=== PATIENT | female | born 2000 | race African-American/Black ===

== ENCOUNTER 2018-12-22 12:29 | Emergency (ER) | payer BC ==
[~2018-12-22] VITALS: Ht 162.6 cm; Wt 56.7 kg
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
[2018-12-22] MEDS ORDERED: ONDANSETRON 4 MG/2 ML VIAL ONE ×2 (12:57→13:53)
[2018-12-22] MEDS ORDERED: LORAZEPAM 2 MG/1 ML VIAL ONE (12:57)
[2018-12-22 12:58] LABS: BASOPHILS # (AUTO) 0.1 K/uL (0.0-8.0); BASOPHILS % (AUTO) 0.6 % (0.0-2.0); EOSINOPHILS # (AUTO) 0.3 K/uL (0.0-0.7); EOSINOPHILS % (AUTO) 2.3 % (0.0-7.0); HEMATOCRIT 43.2 % (31.2-41.9); HEMOGLOBIN 14.1 g/dL (10.9-14.3); LYMPHOCYTES # (AUTO) 1.8 K/uL (20.0-40.0); LYMPHOCYTES % (AUTO) 15.5 % (20.5-74.5); MEAN CORPUSCULAR HEMOGLOBIN 28.3 uug (24.7-32.8); MEAN CORPUSCULAR HGB CONC 33 g/dL (32.3-35.6); MEAN CORPUSCULAR VOLUME 86.6 fL (75.5-95.3); MONOCYTES # (AUTO) 0.8 K/uL (2.0-10.0); MONOCYTES % (AUTO) 6.6 % (0-11); NEUTROPHILS # (AUTO) 8.9 K/uL (1.8-8.9); PLATELET COUNT (AUTO) 386 K/uL (179-408); RED BLOOD CELL COUNT(AUTO) 4.99 MIL/uL (3.63-4.92); WHITE BLOOD COUNT (AUTO) 11.9 K/uL (3.8-11.8)
[2018-12-22] MEDS ORDERED: IV NORMAL SALINE 1000 ML BAG IV ONE (13:00)
[2018-12-22] MEDS ORDERED: ONDANSETRON 4 MG/2 ML VIAL IV ONE ×2 (13:00→13:45)
[2018-12-22] MEDS ORDERED: LORAZEPAM 2 MG/1 ML VIAL IV ONE (13:00)
[2018-12-22 13:07] LABS: CREATININE 0.8 mg/dL (0.6-1.3); POTASSIUM 4.2 mmol/L (3.5-5.1)
[2018-12-22 13:12] LABS: BILIRUBIN,DIRECT 0.1 mg/dL (0.0-0.2); BILIRUBIN,TOTAL 0.4 mg/dL (0.2-1.0); TOTAL PROTEIN, SERUM 7.6 g/dL (6.4-8.2)
[2018-12-22] MEDS ORDERED: METHOCARBAMOL 500 MG TABLET ONE (13:38)
[2018-12-22] MEDS ORDERED: METHOCARBAMOL 500 MG TABLET PO ONE (13:45)
[2018-12-22] MEDS ORDERED: PANTOPRAZOLE SODIUM 40 MG VIAL IV ONE (13:45)
[2018-12-22] MEDS ORDERED: HYDROMORPHONE 1 MG/1 ML DISP.SYRIN IV ONE (13:45)
[2018-12-22] MEDS ORDERED: PANTOPRAZOLE SODIUM 40 MG VIAL ONE (13:47)
[2018-12-22] MEDS ORDERED: HYDROMORPHONE 1 MG/1 ML DISP.SYRIN ONE (13:52)
[2018-12-22 14:19] LABS: *BILIRUBIN,URIN NEGATIVE (NEGATIVE); *BLOOD, URINE NEGATIVE (NEGATIVE); *CLARITY,URINE CLEAR (CLEAR); *COLOR,URINE YELLOW (YELLOW); *KETONES,URINE NEGATIVE (NEGATIVE); *UROBILINOGEN,URINE 0.2 E.U./dl (NORMAL); LEUKOCYTE ESTERASE ,URINE NEGATIVE (NEGATIVE); NITRITE, URINE NEGATIVE (NEGATIVE); PH,URINE 6.5 (5.0-8.0); UGLUCOSE NEGATIVE (NEGATIVE)
[2018-12-22 14:21] LABS: *URINE HCG, QUAL NEGATIVE (NEGATIVE)
--- NOTE | 2018-12-22 14:57 | NUR ---
Patient discharged to home in stable conditon. Written and verbal after care instructions given. Patient and Katja caregiver verbalizes understanding of instructions.
[2018-12-22 14:58] VITALS: BP 134/83
== END 2018-12-22 14:59 | disposition home or self-care (01) ==
LOC: ER 12:29
DX: F15.93 Other stimulant use, unspecified with withdrawal (principal); M62.838 Other muscle spasm; R11.2 Nausea with vomiting, unspecified
CPT/HCPCS: 36415; 80048; 80076; 81001; 83690; 84703; 85025; 96361; 96374; 96375; 96376; 99283; C9113; J1170; J2060; J2405 ×2; A4663; J7030

== ENCOUNTER 2018-12-27 13:28 | Emergency (ER) | payer BC ==
[~2018-12-27] VITALS: Ht 162.6 cm; Wt 52.2 kg
[2018-12-27] MEDS ORDERED: METOCLOPRAMIDE HCL 10 MG/2 ML VIAL IV ONE (14:30)
[2018-12-27] MEDS ORDERED: IV NORMAL SALINE 1000 ML BAG IV ONE (14:30)
[2018-12-27] MEDS ORDERED: diphenhydrAMINE 50 MG/1 ML VIAL IV ONE (14:30)
[2018-12-27] MEDS ORDERED: KETOROLAC TROMETHAMINE 15 MG INJ IVP ONE (14:30)
[2018-12-27] MEDS ORDERED: diphenhydrAMINE 50 MG/1 ML VIAL ONE (15:06)
[2018-12-27] MEDS ORDERED: METOCLOPRAMIDE HCL 10 MG/2 ML VIAL ONE (15:06)
[2018-12-27] MEDS ORDERED: KETOROLAC TROMETHAMINE 15 MG INJ ONE (15:06)
--- NOTE | 2018-12-27 15:12 | NUR ---
Patient is asking IV ativan for her benzodiazepine withdrawal & addiction, MD notified.
--- NOTE | 2018-12-27 15:18 | NUR ---
Occasional retching seen, no actual vomiting seen. Comfort & safety measures maintained (lights dimmed, extra warm blankets on, listening ear provided).
--- NOTE | 2018-12-27 15:49 | NUR ---
Patient is resting comfortably in bed with eyes closed. PATIENT IS PAIN FREE AT THIS TIME.
--- NOTE | 2018-12-27 16:33 | NUR ---
Patient ambulated to bathroom with steady gait, denies nausea@this time. "Can I have a cup of water?" per patient. notified.
--- NOTE | 2018-12-27 16:53 | NUR ---
IV removed. Catheter intact and site benign. Pressure and 4x4 gauze applied to site. No bleeding noted. Patient discharged to home in stable conditon with steady gait. Written and verbal after care instructions given to patient & her addiction counselor. Patient & addiction counselor verbalized understanding & compliance of instructions.
== END 2018-12-27 17:01 | disposition home or self-care (01) ==
LOC: ER 13:30
DX: F15.93 Other stimulant use, unspecified with withdrawal (principal)
CPT/HCPCS: 96374; 96375; 99283; J1200; J1885; J2765; A4663; J7030

== ENCOUNTER 2020-01-15 01:27 | Emergency (ER) | payer BC ==
[~2020-01-15] VITALS: Ht 162.6 cm; Wt 59.0 kg
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
[2020-01-15] MEDS ORDERED: [UNRECOGNIZED DRUG - REMARK] (01:43)
[2020-01-15] MEDS ORDERED: [UNRECOGNIZED DRUG - REMARK] (01:43)
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
[2020-01-15] MEDS ORDERED: KETOROLAC TROMETHAMINE 60 MG INJ IM ONE (02:23)
[2020-01-15] MEDS ORDERED: ONDANSETRON ODT 4 MG TAB.RAPDIS ONE (02:23)
[2020-01-15 02:24] LABS: *URINE HCG, QUAL NEGATIVE (NEGATIVE)
[2020-01-15] MEDS ORDERED: LORAZEPAM 2 MG/1 ML VIAL ONE (02:24)
[2020-01-15] MEDS: LORAZEPAM 2 MG/1 ML VIAL IM ONE (02:31)
[2020-01-15] MEDS: KETOROLAC TROMETHAMINE 60 MG INJ IM ONE (02:32)
[2020-01-15] MEDS: ONDANSETRON ODT 4 MG TAB.RAPDIS SL ONE (02:33)
[2020-01-15 02:38] LABS: *BILIRUBIN,URIN NEGATIVE (NEGATIVE); *BLOOD, URINE 2+ (NEGATIVE); *CLARITY,URINE CLEAR (CLEAR); *COLOR,URINE YELLOW (YELLOW); *KETONES,URINE NEGATIVE (NEGATIVE); *UROBILINOGEN,URINE 0.2 E.U./dl (NORMAL); LEUKOCYTE ESTERASE ,URINE NEGATIVE (NEGATIVE); NITRITE, URINE NEGATIVE (NEGATIVE); PH,URINE 6.5 (5.0-8.0); UGLUCOSE NEGATIVE (NEGATIVE)
--- NOTE | 2020-01-15 02:45 | NUR ---
[employer] into interview patient.
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
[2020-01-15 02:51] LABS: BACTERIA,URINE NONE SEEN /HPF (NONE SEEN); RBC,URINE 20-50 /HPF (0-3); SQUAMOUS EPITHELIAL CELL,UR FEW /HPF (NONE SEEN); WBC,URINE 0-3 /HPF (0-3)
[2020-01-15] MEDS ORDERED: LIDOCAINE HCL 1% 20 ML VIAL ONE (02:57)
[2020-01-15] MEDS ORDERED: CEFTRIAXONE 500 MG VIAL ONE (02:57)
[2020-01-15] MEDS ORDERED: DOXYCYCLINE HYCLATE 100 MG TABLET ONE (02:57)
[2020-01-15] MEDS: DOXYCYCLINE HYCLATE 100 MG TABLET PO ONE (03:00)
[2020-01-15] MEDS: CEFTRIAXONE 500 MG VIAL IM ONE (03:00)
--- NOTE | 2020-01-15 03:45 | NUR ---
Femal officer here to interview patient. Officer [place] [id number].
--- NOTE | 2020-01-15 04:35 | NUR ---
Patient discharged to home in stable condition with staff member from [facility] taking patient back to Rehab. Written and verbal after care instructions given. Patient verbalizes understanding of instructions. Stressed follow up or return to ER for worsening s/s.
[2020-01-15 04:36] VITALS: BP 128/90
== END 2020-01-15 04:37 | disposition other institution (70) ==
LOC: ER 01:32
DX: F11.23 Opioid dependence with withdrawal (principal); F13.239 Sedative, hypnotic or anxiolytic dependence with withdrawal, unspecified; T76.21XA Adult sexual abuse, suspected, initial encounter; R52 Pain, unspecified; R31.29 Other microscopic hematuria
CPT/HCPCS: 81001; 84703; 87210; 96372 ×2; 99284; J0696; J1885; J2060; J3490; A4663; Q0162